=== PATIENT | male | born 1955 | race Caucasian/White ===

== ENCOUNTER 2021-05-11 13:08 | Outpatient (CLI) | payer OTHER | END 2021-05-11 13:09 | disposition EMS.NT | LOC: EMS 13:08 | DX: S61.210A Laceration without foreign body of right index finger without damage to nail, initial encounter (principal); S61.212A Laceration without foreign body of right middle finger without damage to nail, initial encounter; W27.0XXA Contact with workbench tool, initial encounter; Y92.009 Unspecified place in unspecified non-institutional (private) residence as the place of occurrence of the external cause ==

== ENCOUNTER 2021-05-11 14:34 | Emergency (ER) | payer OTHER ==
[2021-05-11] MEDS ORDERED: TETANUS/DIPHTHERIA/PERTUSSIS 0.5 ML SYRINGE IM ONE (15:42)
[2021-05-11] MEDS ORDERED: BUFFERED LIDOCAINE 10 ML SYRINGE SUBQ STA (15:42)
--- NOTE | 2021-05-11 15:44 | ED Physician Documentation ---
PD HPI UPPER EXT INJURY - Stated complaint Stated Complaint: LEFT HAND INJURY - Chief complaint Chief Complaint: Laceration - History obtained from History obtained from: Patient (65-year-old gentleman with unknown tetanus status was using a skill saw at home and accidentally cut his left. No other injuries.) Review of Systems Constitutional: reports: Reviewed and negative Eyes: reports: Reviewed and negative Ears: reports: Reviewed and negative Nose: reports: Reviewed and negative Throat: reports: Reviewed and negative PD PAST MEDICAL HISTORY - Present Medications Home Medications: Ambulatory Orders Medication Instructions Recorded Confirmed Bacitracin Zinc Oint 1 applic TOP BID #1 gm 05/11/21 HYDROcod/ACETAM 5/325 [Meldrim 5/325] 1 - 2 tab PO Q6H PRN #15 tablet 05/11/21 - Allergies Allergies/Adverse Reactions: Allergies Allergy/AdvReac Type Severity Reaction Status Date / Time No Known Drug Allergies Allergy Verified 05/11/21 15:45 PD ED PE NORMAL - Vitals Vital signs reviewed: Yes - General General: Alert and oriented X 3, No acute distress - HEENT HEENT: PERRL, EOMI - Extremities Extremities: Other (Focused examination of left hand demonstrates stellate laceration of the pulps of the second and third fingers, no lacerations proximal to the DIPs, neurovascular intact to the tips.) - Neuro Neuro: Alert and oriented X 3, Normal speech Results - Vitals Vitals: Vital Signs - 24 hr 05/11/21 14:41 Temperature 36.4 C L Heart Rate 79 Respiratory 14 Rate Blood Pressure 131/88 H O2 Saturation 94 Oxygen O2 Source Room air Procedures - Laceration (location) L 2nd finger Length in cm: 2 Wound type: Irregular, Into subcut fat Anesthesia: Other (Block with buffered lidocaine) Wound preparation: Hibiclens, Irrigated copiously NS Skin layer closure: Nylon (4-0 x 10) Other: Patient tolerated well, No complications, Neurovascular intact, Tetanus booster given L 3rd finger Length in cm: 2 Wound type: Stellate, Irregular, Into subcut fat Anesthesia: Other (Block with buffered lidocaine) Wound preparation: Hibiclens, Irrigated copiously NS Skin layer closure: Nylon (4-0 x 10) Other: Patient tolerated well, No complications, Neurovascular intact, Tetanus booster given Departure - Departure Disposition: 01 Home, Self Care Clinical Impression: Laceration of left index finger Qualifiers: Encounter type: initial encounter Damage to nail status: without damage Foreign body presence: without foreign body Qualified Code(s): S61.211A - Laceration without foreign body of left index finger without damage to nail, initial encounter Laceration of left middle finger Qualifiers: Encounter type: initial encounter Damage to nail status: without damage Foreign body presence: without foreign body Qualified Code(s): S61.213A - Laceration without foreign body of left middle finger without damage to nail, initial encounter Condition: Good Record reviewed to determine appropriate education?: Yes Instructions: ED Laceration Hand Prescriptions: Bacitracin Zinc Oint 1 applic TOP BID #1 gm HYDROcod/ACETAM 5/325 [Meldrim 5/325] 1 - 2 tab PO Q6H PRN #15 tablet PRN Reason: Pain Comments: Come back for any signs of infection which would include: Redness, swelling, drainage, increased pain, or fevers. You can wash it soap and water. Keep it covered and moist with bacitracin ointment which is available over the counter; avoid neosporin. Follow-up with your physician in about 14 days for suture removal. Prescription sent electronically to [facility] in [facility]. I am prescribing a short course of narcotic pain medication for you. These are potentially dangerous and addictive medications that should be used carefully. These medications may constipate you. Take an [id number] stool softener (docusate) twice daily with plenty of water while taking these medications. If you go 24 hours without a bowel movement, take [id number] miralax, per package instructions. Do not drink or drive while taking these medications. If you received narcotic or sedating medications while in the emergency department, do not drive for 24 hours. Store this medication in a safe, secure place and out of reach of children. It is a violation of federal law to give or sell this medication to another person or to use in a manner other than prescribed. The ED will not refill narcotic prescriptions, including prescriptions lost or stolen. To dispose of unwanted medications: 1. [facility] at [address] in [place] has a medication drop box. They accept prescription medications (in pill form) Tuesday through Tuesday 9:00 a.m. to 5:00 p.m. 2. The [facility] [employer] accepts prescription medications (in pill form only) for disposal year round. Call for more information. 3. Contact the [facility] for the next [facility] sponsored prescription drug collection event. , [phone], or [phone]; Note that many narcotic pain relievers also contain Tylenol/acetaminophen. Please ensure that your total dose of acetaminophen from all sources does not exceed 3 g (3000 mg) per day.
[2021-05-11 16:23] VITALS: BP 142/89
== END 2021-05-11 16:27 | disposition home or self-care (01) ==
LOC: ED 14:34
DX: S61.211A Laceration without foreign body of left index finger without damage to nail, initial encounter (principal); S61.213A Laceration without foreign body of left middle finger without damage to nail, initial encounter; W31.2XXA Contact with powered woodworking and forming machines, initial encounter
CPT/HCPCS: 12002; 90471; 99282; 99283